=== PATIENT | female | born 1945 | race Caucasian/White ===

== ENCOUNTER 2017-07-16 05:58 | Day surgery (SDC) | payer OTHER ==
[2017-07-16] MEDS ORDERED: LIDOCAINE 2% (SDV) 5 ML INJ (07:50)
[2017-07-16] MEDS ORDERED: PROPOFOL 60 ML (07:50)
== END 2017-07-16 11:30 | disposition home or self-care (01) ==
LOC: GIL 05:58
DX: Z12.11 Encounter for screening for malignant neoplasm of colon (principal); E11.9 Type 2 diabetes mellitus without complications; I10 Essential (primary) hypertension; Z79.84 Long term (current) use of oral hypoglycemic drugs
CPT/HCPCS: 45378

== ENCOUNTER 2017-11-05 23:53 | Inpatient (IN) | payer OTHER ==
[2017-11-06] MEDS: ONDANSETRON 4 MG INJ IV ×4 (01:26→18:22)
[2017-11-06] MEDS: morphine 2 MG INJ IV ×4 (01:27→18:22)
[2017-11-06 02:14] LABS: ADD MAN DIFF? NO
[2017-11-06 02:20] LABS: ABNORMAL IP MESSAGE 1; BASOPHILS % 0.2 % (0.0-2.0); EOSINOPHILS % 0.2 % (0.0-7.0); HEMATOCRIT 35.4 % (37.0-47.0); HEMOGLOBIN 11.7 g/dl (12.0-16.0); LYMPHOCYTES # 0.3 10^3/ul (0.8-2.9); LYMPHOCYTES % 5.1 % (15.0-51.0); MEAN CORPUSCULAR HEMOGLOBIN 31.4 pg (29.0-33.0); MEAN CORPUSCULAR HGB CONC 33.1 g/dl (32.0-37.0); MEAN CORPUSCULAR VOLUME 94.9 fl (82.0-101.0); MONOCYTE # 0.3 10^3/ul (0.3-0.9); MONOCYTES % 5.1 % (0.0-11.0); NEUTROPHIL # 5.8 10^3/ul (1.6-7.5); NEUTROPHILS % 88.9 % (39.0-77.0); PLATELET COUNT 231 10^3/UL (140-415); RED BLOOD COUNT 3.73 10^6/ul (4.20-5.40); RED CELL DISTRIBUTION WIDTH 14.2 % (11.5-14.5)
[2017-11-06 02:20] LABS: WHITE BLOOD COUNT 6.5 10^3/ul (4.8-10.8)
[2017-11-06 02:24] LABS: POSITIVE DIFF @See below
[2017-11-06 02:29] LABS: URINE PH (Dip) POC 6.5 (5.0-8.5)
[2017-11-06 02:29] LABS: URINE BLOOD (Dip) POC Trace-intact (NEGATIVE); URINE GLUCOSE (Dip) POC Negative (NEGATIVE); URINE KETONES (Dip) POC 2+ (NEGATIVE); URINE LEUKOCYTE EST (Dip) POC Negative (NEGATIVE); URINE NITRITE (Dip) POC Negative (NEGATIVE); URINE TOTAL PROTEIN POC Trace (NEGATIVE)
[2017-11-06 02:34] LABS: ALANINE AMINOTRANSFERASE 22 IU/L (13-69); ALBUMIN 4.5 g/dl (3.3-4.9); ALBUMIN/GLOBULIN RATIO 1.36; ALKALINE PHOSPHATASE 55 IU/L (42-121); ANION GAP 12 (8-16); ASPARTATE AMINO TRANSFERASE 27 IU/L (15-46); BILIRUBIN,INDIRECT 0.6 mg/dl (0-1.1); BILIRUBIN,TOTAL 0.6 mg/dl (0.2-1.3); BLOOD UREA NITROGEN 19 mg/dl (7-20); CALCIUM 9.3 mg/dl (8.4-10.2); CARBON DIOXIDE 27 mmol/L (21-31); CHLORIDE 106 mmol/L (97-110); CREATININE 0.67 mg/dl (0.44-1.00); GLUCOSE 134 mg/dl (70-220); LIPASE 58 U/L (23-300); POTASSIUM 4.1 mmol/L (3.5-5.1); SODIUM 141 mmol/L (135-144); TOTAL PROTEIN 7.8 g/dl (6.1-8.1)
[2017-11-06] MEDS ORDERED: NACL 0.9% 3 ML SYG IV ×2 (03:00→12:30)
[2017-11-06] MEDS: SOD CHLORIDE 0.9% 1,000 ML IV ×3 (03:46→23:27)
[2017-11-06] MEDS: PIPER-TAZO 3.375 GM IV (PMX) 100 ML IVPB (03:46)
[2017-11-06] MEDS ORDERED: DIATR MEGLU/DIATRIZOATE SODIUM 120 ML BTL (09:25)
[2017-11-06] MEDS ORDERED: morphine 2 MG INJ IV (12:30)
[2017-11-07 06:09] LABS: ADD MAN DIFF? NO
[2017-11-07 06:20] LABS: BASOPHILS % 0.3 % (0.0-2.0); HEMATOCRIT 31.1 % (37.0-47.0); LYMPHOCYTES # 0.8 10^3/ul (0.8-2.9); LYMPHOCYTES % 19.9 % (15.0-51.0); MEAN CORPUSCULAR HGB CONC 32.2 g/dl (32.0-37.0); MEAN CORPUSCULAR VOLUME 96.3 fl (82.0-101.0); MONOCYTE # 0.3 10^3/ul (0.3-0.9); MONOCYTES % 6.5 % (0.0-11.0); NEUTROPHIL # 2.8 10^3/ul (1.6-7.5); PLATELET COUNT 233 10^3/UL (140-415); RED BLOOD COUNT 3.23 10^6/ul (4.20-5.40); RED CELL DISTRIBUTION WIDTH 14.7 % (11.5-14.5)
[2017-11-07 06:20] LABS: WHITE BLOOD COUNT 3.8 10^3/ul (4.8-10.8)
[2017-11-07 07:37] LABS: ALANINE AMINOTRANSFERASE 19 IU/L (13-69); ALBUMIN 3.4 g/dl (3.3-4.9); ALBUMIN/GLOBULIN RATIO 1.21; ALKALINE PHOSPHATASE 43 IU/L (42-121); ANION GAP 9 (8-16); ASPARTATE AMINO TRANSFERASE 20 IU/L (15-46); BILIRUBIN,INDIRECT 0.6 mg/dl (0-1.1); BILIRUBIN,TOTAL 0.6 mg/dl (0.2-1.3); BLOOD UREA NITROGEN 16 mg/dl (7-20); CALCIUM 7.9 mg/dl (8.4-10.2); CARBON DIOXIDE 24 mmol/L (21-31); CHLORIDE 116 mmol/L (97-110); CHOL/HDL RATIO 2.1 RATIO; CHOLESTEROL 131 mg/dl (100-200); CREATININE 0.53 mg/dl (0.44-1.00); GLUCOSE 89 mg/dl (70-220); HDL CHOLESTEROL 61 mg/dl (33-92); LDL CHOLESTEROL,CALCULATED 56 mg/dl; MAGNESIUM 1.9 mg/dl (1.7-2.5); POTASSIUM 3.5 mmol/L (3.5-5.1); SODIUM 145 mmol/L (135-144); TOTAL PROTEIN 6.2 g/dl (6.1-8.1); TRIGLYCERIDES 70 mg/dl (0-149)
[2017-11-07 07:42] LABS: FREE THYROXINE INDEX (Calc) 1.75 ug/ml (0.65-3.89); T3 UPTAKE 33.1 % (23.5-40.5); T4 (THYROXINE) 5.3 ug/dl (5.5-11.0)
[2017-11-07 07:53] LABS: HEMOGLOBIN A1C 5.5 % (0-5.9)
[2017-11-07] MEDS: SOD CHLORIDE 0.9% 1,000 ML IV (09:16)
[2017-11-07] MEDS: ENOXAPARIN 40 MG/0.4 ML SYG SC (09:18)
[2017-11-07] MEDS: morphine 2 MG INJ IV (11:11)
[2017-11-07] MEDS: ONDANSETRON 4 MG INJ IV (11:11)
[2017-11-07] MEDS: ACETAMINOPHEN 325 MG TAB PO (16:32)
[2017-11-08 06:43] LABS: ANION GAP 8 (8-16); BLOOD UREA NITROGEN 11 mg/dl (7-20); CARBON DIOXIDE 26 mmol/L (21-31); CHLORIDE 110 mmol/L (97-110); CREATININE 0.53 mg/dl (0.44-1.00); GLUCOSE 85 mg/dl (70-220); POTASSIUM 3.2 mmol/L (3.5-5.1); SODIUM 141 mmol/L (135-144)
[2017-11-08] MEDS: ENOXAPARIN 40 MG/0.4 ML SYG SC (09:35)
[2017-11-08] MEDS: NEUTRA-PHOS 250 MG PACKET PO (14:45)
[2017-11-08] MEDS: POTASSIUM CHLORIDE (SR) 20 MEQ TAB PO (18:05)
== END 2017-11-08 19:00 | disposition home or self-care (01) | DRG 390 ==
LOC: E/R 23:53 → PP2 11-06 02:54
DX: K56.51 Intestinal adhesions [bands], with partial obstruction (principal); M81.0 Age-related osteoporosis without current pathological fracture; Z85.41 Personal history of malignant neoplasm of cervix uteri; Z90.710 Acquired absence of both cervix and uterus
CPT/HCPCS: 36415; 74176; 74250; 80048; 80053; 80061; 81003; 83036; 83690; 83735; 84100; 84436; 84479; 85025; 96374; 96375; 99285-25

== ENCOUNTER 2018-01-02 14:49 | Inpatient (IN) | payer OTHER ==
[2018-01-02 15:28] LABS: ADD MAN DIFF? NO
[2018-01-02 15:35] LABS: ABNORMAL IP MESSAGE 1; BASOPHILS % 0.2 % (0.0-2.0); EOSINOPHILS % 0.3 % (0.0-7.0); HEMATOCRIT 35.9 % (37.0-47.0); HEMOGLOBIN 12.1 g/dl (12.0-16.0); LYMPHOCYTES # 0.5 10^3/ul (0.8-2.9); LYMPHOCYTES % 8.5 % (15.0-51.0); MEAN CORPUSCULAR HEMOGLOBIN 31.7 pg (29.0-33.0); MEAN CORPUSCULAR HGB CONC 33.7 g/dl (32.0-37.0); MEAN PLATELET VOLUME 9.8 fl (7.4-10.4); MONOCYTE # 0.2 10^3/ul (0.3-0.9); MONOCYTES % 3.8 % (0.0-11.0); NEUTROPHIL # 5.5 10^3/ul (1.6-7.5); PLATELET COUNT 241 10^3/UL (140-415); RED BLOOD COUNT 3.82 10^6/ul (4.20-5.40); RED CELL DISTRIBUTION WIDTH 14.3 % (11.5-14.5)
[2018-01-02 15:35] LABS: WHITE BLOOD COUNT 6.3 10^3/ul (4.8-10.8)
[2018-01-02 15:37] LABS: POSITIVE DIFF @See below
[2018-01-02] MEDS: SOD CHLORIDE 0.9% 1,000 ML IV (15:44)
[2018-01-02] MEDS: ONDANSETRON 4 MG INJ IV (15:44)
[2018-01-02] MEDS: morphine 4 MG/ML VIAL IV (15:49)
[2018-01-02 15:52] LABS: ALANINE AMINOTRANSFERASE 18 IU/L (13-69); ALBUMIN 4.5 g/dl (3.3-4.9); ALBUMIN/GLOBULIN RATIO 1.21; ALKALINE PHOSPHATASE 59 IU/L (42-121); ANION GAP 14 (8-16); ASPARTATE AMINO TRANSFERASE 27 IU/L (15-46); BILIRUBIN,INDIRECT 0.9 mg/dl (0-1.1); BILIRUBIN,TOTAL 0.9 mg/dl (0.2-1.3); CALCIUM 9.3 mg/dl (8.4-10.2); CARBON DIOXIDE 24 mmol/L (21-31); CHLORIDE 105 mmol/L (97-110); CREATININE 0.59 mg/dl (0.44-1.00); GLUCOSE 123 mg/dl (70-220); LIPASE 327 U/L (23-300); SODIUM 139 mmol/L (135-144); TOTAL PROTEIN 8.2 g/dl (6.1-8.1)
[2018-01-02 15:53] LABS: BLOOD UREA NITROGEN 18 mg/dl (7-20)
[2018-01-02] MEDS ORDERED: LIDOCAINE 2% VISC 15 ML CUP PO (18:00)
[2018-01-02] MEDS ORDERED: ONDANSETRON 4 MG INJ IV ×2 (18:00→18:30)
[2018-01-02] MEDS ORDERED: ACETAMINOPHEN 325 MG TAB PO ×2 (18:00→18:30)
[2018-01-02] MEDS ORDERED: NACL 0.9% 3 ML SYG IV (18:30)
[2018-01-02] MEDS: KETOROLAC 15 MG INJ IV (18:59)
[2018-01-02] MEDS ORDERED: KETOROLAC 30 MG INJ IV (19:00)
[2018-01-02] MEDS ORDERED: morphine 2 MG INJ IV (19:00)
[2018-01-02] MEDS: LIDOCAINE 2% 20 ML UROJET SYRINGE MM (19:08)
[2018-01-02] MEDS: DEXTROSE 5%-0.45% NACL 1,000 ML IV (21:20)
[2018-01-03] MEDS: DEXTROSE 5%-0.45% NACL 1,000 ML IV ×2 (04:12→05:12)
[2018-01-03] MEDS: PANTOPRAZOLE 40 MG INJ IV (05:12)
[2018-01-03 05:31] LABS: ADD MAN DIFF? NO
[2018-01-03 05:36] LABS: BASOPHILS % 0.7 % (0.0-2.0); EOSINOPHILS % 1.3 % (0.0-7.0); HEMATOCRIT 30.4 % (37.0-47.0); LYMPHOCYTES # 0.9 10^3/ul (0.8-2.9); MEAN CORPUSCULAR HEMOGLOBIN 31.3 pg (29.0-33.0); MEAN CORPUSCULAR HGB CONC 32.9 g/dl (32.0-37.0); MEAN CORPUSCULAR VOLUME 95.3 fl (82.0-101.0); MEAN PLATELET VOLUME 10.2 fl (7.4-10.4); MONOCYTE # 0.2 10^3/ul (0.3-0.9); NEUTROPHIL # 1.8 10^3/ul (1.6-7.5); NEUTROPHILS % 60.7 % (39.0-77.0); PLATELET COUNT 214 10^3/UL (140-415); RED BLOOD COUNT 3.19 10^6/ul (4.20-5.40); RED CELL DISTRIBUTION WIDTH 14.4 % (11.5-14.5)
[2018-01-03 06:07] LABS: ANION GAP 7 (8-16); BLOOD UREA NITROGEN 13 mg/dl (7-20); CALCIUM 7.8 mg/dl (8.4-10.2); CARBON DIOXIDE 27 mmol/L (21-31); CHLORIDE 108 mmol/L (97-110); CREATININE 0.55 mg/dl (0.44-1.00); GLUCOSE 109 mg/dl (70-220); MAGNESIUM 2.1 mg/dl (1.7-2.5); PHOSPHORUS 2.5 mg/dl (2.5-4.9); POTASSIUM 3.5 mmol/L (3.5-5.1); SODIUM 138 mmol/L (135-144)
[2018-01-03] MEDS ORDERED: POTASSIUM CHLORIDE 20 MEQ in DEXTROSE 5%-0.45% NACL 1,000 ML IV (11:57)
[2018-01-03] MEDS: D5W-0.45 NACL + KCL 20 MEQ 1,000 ML IV (14:10)
[2018-01-03] MEDS: DIATR MEGLU/DIATRIZOATE SODIUM 120 ML BTL (16:15)
[2018-01-04] MEDS: D5W-0.45 NACL + KCL 20 MEQ 1,000 ML IV ×2 (03:39→13:30)
[2018-01-04 05:06] LABS: ADD MAN DIFF? NO
[2018-01-04 05:15] LABS: BASOPHILS % 0.2 % (0.0-2.0); EOSINOPHILS % 0.9 % (0.0-7.0); HEMATOCRIT 32.2 % (37.0-47.0); HEMOGLOBIN 10.3 g/dl (12.0-16.0); LYMPHOCYTES # 0.7 10^3/ul (0.8-2.9); LYMPHOCYTES % 15.4 % (15.0-51.0); MEAN CORPUSCULAR HEMOGLOBIN 30.9 pg (29.0-33.0); MEAN CORPUSCULAR VOLUME 96.7 fl (82.0-101.0); MEAN PLATELET VOLUME 9.9 fl (7.4-10.4); MONOCYTE # 0.3 10^3/ul (0.3-0.9); MONOCYTES % 6.5 % (0.0-11.0); NEUTROPHIL # 3.3 10^3/ul (1.6-7.5); NEUTROPHILS % 76.8 % (39.0-77.0); PLATELET COUNT 224 10^3/UL (140-415); RED BLOOD COUNT 3.33 10^6/ul (4.20-5.40); RED CELL DISTRIBUTION WIDTH 14.6 % (11.5-14.5)
[2018-01-04 05:15] LABS: WHITE BLOOD COUNT 4.3 10^3/ul (4.8-10.8)
[2018-01-04] MEDS: PANTOPRAZOLE 40 MG INJ IV (05:31)
[2018-01-04 05:43] LABS: ALBUMIN 3.4 g/dl (3.3-4.9); ANION GAP 10 (8-16); BLOOD UREA NITROGEN 10 mg/dl (7-20); CALCIUM 8.2 mg/dl (8.4-10.2); CARBON DIOXIDE 24 mmol/L (21-31); CHLORIDE 114 mmol/L (97-110); CREATININE 0.51 mg/dl (0.44-1.00); GLUCOSE 119 mg/dl (70-220); MAGNESIUM 2.3 mg/dl (1.7-2.5); PHOSPHORUS 2.3 mg/dl (2.5-4.9); POTASSIUM 3.7 mmol/L (3.5-5.1); SODIUM 144 mmol/L (135-144)
[2018-01-05] MEDS: D5W-0.45 NACL + KCL 20 MEQ 1,000 ML IV (04:39)
[2018-01-05] MEDS: PANTOPRAZOLE 40 MG INJ IV (05:33)
[2018-01-05 05:49] LABS: ADD MAN DIFF? NO
[2018-01-05 06:00] LABS: ABNORMAL IP MESSAGE 1; BASOPHILS % 0.3 % (0.0-2.0); HEMATOCRIT 32.6 % (37.0-47.0); HEMOGLOBIN 10.7 g/dl (12.0-16.0); LYMPHOCYTES # 0.5 10^3/ul (0.8-2.9); LYMPHOCYTES % 14.8 % (15.0-51.0); MEAN CORPUSCULAR HEMOGLOBIN 31.4 pg (29.0-33.0); MEAN CORPUSCULAR HGB CONC 32.8 g/dl (32.0-37.0); MEAN CORPUSCULAR VOLUME 95.6 fl (82.0-101.0); MEAN PLATELET VOLUME 9.8 fl (7.4-10.4); MONOCYTE # 0.2 10^3/ul (0.3-0.9); MONOCYTES % 5.5 % (0.0-11.0); NEUTROPHIL # 2.4 10^3/ul (1.6-7.5); NEUTROPHILS % 78.1 % (39.0-77.0); PLATELET COUNT 250 10^3/UL (140-415); RED BLOOD COUNT 3.41 10^6/ul (4.20-5.40); RED CELL DISTRIBUTION WIDTH 14.3 % (11.5-14.5)
[2018-01-05 06:00] LABS: WHITE BLOOD COUNT 3.1 10^3/ul (4.8-10.8)
[2018-01-05 06:17] LABS: POSITIVE DIFF @See below
[2018-01-05 06:22] LABS: ALBUMIN 3.7 g/dl (3.3-4.9); ANION GAP 13 (8-16); BLOOD UREA NITROGEN 4 mg/dl (7-20); CALCIUM 8.6 mg/dl (8.4-10.2); CARBON DIOXIDE 24 mmol/L (21-31); CHLORIDE 106 mmol/L (97-110); CREATININE 0.53 mg/dl (0.44-1.00); GLUCOSE 107 mg/dl (70-220); MAGNESIUM 1.9 mg/dl (1.7-2.5); PHOSPHORUS 1.7 mg/dl (2.5-4.9); POTASSIUM 3.9 mmol/L (3.5-5.1); SODIUM 139 mmol/L (135-144)
[2018-01-05] MEDS: KETOROLAC 15 MG INJ IV (11:52)
[2018-01-05] MEDS: SOD CHLORIDE 0.45% 1,000 ML IV (13:46)
[2018-01-05] MEDS: NEUTRA-PHOS 250 MG PACKET PO (14:59)
== END 2018-01-05 17:15 | disposition home or self-care (01) | DRG 390 ==
LOC: E/R 14:49 → MS1 17:59
DX: K56.51 Intestinal adhesions [bands], with partial obstruction (principal); M81.0 Age-related osteoporosis without current pathological fracture; K42.9 Umbilical hernia without obstruction or gangrene; Z85.42 Personal history of malignant neoplasm of other parts of uterus; Z85.43 Personal history of malignant neoplasm of ovary; Z92.3 Personal history of irradiation; Z90.710 Acquired absence of both cervix and uterus
CPT/HCPCS: 36415; 71045; 74176; 74250; 80048; 80053; 80069; 83690; 83735; 84100; 85025; 93005; 96374; 96375; 99285-25

== ENCOUNTER 2018-06-17 02:15 | Inpatient (IN) | payer OTHER ==
[2018-06-17 03:28] LABS: ADD MAN DIFF? NO
[2018-06-17] MEDS: ONDANSETRON 4 MG INJ IV (03:30)
[2018-06-17] MEDS: morphine 2 MG INJ IV (03:31)
[2018-06-17 03:45] LABS: ALANINE AMINOTRANSFERASE 13 IU/L (13-69); ALBUMIN 4.3 g/dl (3.3-4.9); ALBUMIN/GLOBULIN RATIO 1.16; ALKALINE PHOSPHATASE 56 IU/L (42-121); ANION GAP 10 (5-13); ASPARTATE AMINO TRANSFERASE 30 IU/L (15-46); BILIRUBIN,INDIRECT 0.6 mg/dl (0-1.1); BILIRUBIN,TOTAL 0.6 mg/dl (0.2-1.3); BLOOD UREA NITROGEN 20 mg/dl (7-20); CALCIUM 9.5 mg/dl (8.4-10.2); CARBON DIOXIDE 27 mmol/L (21-31); CHLORIDE 100 mmol/L (97-110); CREATININE 0.51 mg/dl (0.44-1.00); Estimated GFR > 60 mL/min (>60); GLUCOSE 115 mg/dl (70-220); LIPASE 129 U/L (23-300); POTASSIUM 4.2 mmol/L (3.5-5.1); SODIUM 137 mmol/L (135-144)
[2018-06-17 03:51] LABS: WHITE BLOOD COUNT 4.7 10^3/ul (4.8-10.8)
[2018-06-17 03:51] LABS: BASOPHILS % 0.4 % (0.0-2.0); EOSINOPHILS % 0.6 % (0.0-7.0); HEMATOCRIT 33.6 % (37.0-47.0); HEMOGLOBIN 11.2 g/dl (12.0-16.0); LYMPHOCYTES # 0.7 10^3/ul (0.8-2.9); LYMPHOCYTES % 14.2 % (15.0-51.0); MEAN CORPUSCULAR HEMOGLOBIN 31.2 pg (29.0-33.0); MEAN CORPUSCULAR HGB CONC 33.3 g/dl (32.0-37.0); MEAN CORPUSCULAR VOLUME 93.6 fl (82.0-101.0); MONOCYTE # 0.3 10^3/ul (0.3-0.9); MONOCYTES % 5.7 % (0.0-11.0); NEUTROPHIL # 3.7 10^3/ul (1.6-7.5); NEUTROPHILS % 78.9 % (39.0-77.0); PLATELET COUNT 268 10^3/UL (140-415); RED BLOOD COUNT 3.59 10^6/ul (4.20-5.40); RED CELL DISTRIBUTION WIDTH 14.4 % (11.5-14.5)
[2018-06-17 03:57] LABS: URINE BLOOD (Dip) POC Trace-lysed (NEGATIVE); URINE GLUCOSE (Dip) POC Negative (NEGATIVE); URINE KETONES (Dip) POC 3+ (NEGATIVE); URINE LEUKOCYTE EST (Dip) POC Negative (NEGATIVE); URINE NITRITE (Dip) POC Negative (NEGATIVE); URINE TOTAL PROTEIN POC Negative (NEGATIVE)
[2018-06-17] MEDS: PIPER-TAZO 3.375 GM IV (PMX) 100 ML IVPB (04:16)
[2018-06-17] MEDS: DEXTROSE 5%-0.45% NACL 1,000 ML IV ×2 (05:17→14:58)
[2018-06-17] MEDS ORDERED: NACL 0.9% 3 ML SYG IV (05:30)
[2018-06-17] MEDS: ENOXAPARIN 30 MG/0.3 ML SYG SC (09:16)
[2018-06-17] MEDS: HYDROmorphONE 0.5 MG/0.5 ML SYG IV (18:59)
[2018-06-18] MEDS: DEXTROSE 5%-0.45% NACL 1,000 ML IV ×2 (02:51→13:43)
[2018-06-18] MEDS: HYDROmorphONE 0.5 MG/0.5 ML SYG IV ×2 (02:55→12:15)
[2018-06-18] MEDS: IOHEXOL 14.3 MG(I)/ML (ADULT) BTL PO ×2 (03:42→10:29)
[2018-06-18 06:12] LABS: ADD MAN DIFF? NO
[2018-06-18 06:14] LABS: BASOPHILS % 0.3 % (0.0-2.0); EOSINOPHILS % 1.1 % (0.0-7.0); HEMATOCRIT 30.6 % (37.0-47.0); HEMOGLOBIN 10.1 g/dl (12.0-16.0); LYMPHOCYTES # 0.8 10^3/ul (0.8-2.9); LYMPHOCYTES % 20.1 % (15.0-51.0); MEAN CORPUSCULAR VOLUME 93.9 fl (82.0-101.0); MEAN PLATELET VOLUME 9.9 fl (7.4-10.4); MONOCYTE # 0.3 10^3/ul (0.3-0.9); MONOCYTES % 8.7 % (0.0-11.0); NEUTROPHIL # 2.6 10^3/ul (1.6-7.5); NEUTROPHILS % 69.5 % (39.0-77.0); PLATELET COUNT 234 10^3/UL (140-415); RED BLOOD COUNT 3.26 10^6/ul (4.20-5.40); RED CELL DISTRIBUTION WIDTH 14.2 % (11.5-14.5)
[2018-06-18 06:14] LABS: WHITE BLOOD COUNT 3.8 10^3/ul (4.8-10.8)
[2018-06-18 06:38] LABS: HEMOGLOBIN A1C 5.5 % (0-5.9)
[2018-06-18 07:16] LABS: ALANINE AMINOTRANSFERASE 14 IU/L (13-69); ALBUMIN 3.5 g/dl (3.3-4.9); ALBUMIN/GLOBULIN RATIO 1.12; ALKALINE PHOSPHATASE 46 IU/L (42-121); ANION GAP 5 (5-13); ASPARTATE AMINO TRANSFERASE 21 IU/L (15-46); BILIRUBIN,INDIRECT 0.6 mg/dl (0-1.1); BILIRUBIN,TOTAL 0.6 mg/dl (0.2-1.3); BLOOD UREA NITROGEN 9 mg/dl (7-20); CALCIUM 8.7 mg/dl (8.4-10.2); CARBON DIOXIDE 27 mmol/L (21-31); CHLORIDE 103 mmol/L (97-110); CREATININE 0.56 mg/dl (0.44-1.00); Estimated GFR > 60 mL/min (>60); GLUCOSE 119 mg/dl (70-220); POTASSIUM 3.5 mmol/L (3.5-5.1); SODIUM 135 mmol/L (135-144); TOTAL PROTEIN 6.6 g/dl (6.1-8.1)
[2018-06-18] MEDS: ENOXAPARIN 30 MG/0.3 ML SYG SC (08:41)
[2018-06-18] MEDS: ONDANSETRON 4 MG INJ IV ×2 (12:09→21:44)
[2018-06-19] MEDS: DEXTROSE 5%-0.45% NACL 1,000 ML IV ×3 (00:15→17:09)
[2018-06-19 06:19] LABS: ADD MAN DIFF? NO
[2018-06-19 06:41] LABS: BASOPHILS % 0.3 % (0.0-2.0); EOSINOPHILS % 1.1 % (0.0-7.0); HEMATOCRIT 30.7 % (37.0-47.0); LYMPHOCYTES # 0.8 10^3/ul (0.8-2.9); MEAN CORPUSCULAR HEMOGLOBIN 30.9 pg (29.0-33.0); MEAN CORPUSCULAR HGB CONC 32.6 g/dl (32.0-37.0); MEAN CORPUSCULAR VOLUME 94.8 fl (82.0-101.0); MEAN PLATELET VOLUME 9.7 fl (7.4-10.4); MONOCYTE # 0.3 10^3/ul (0.3-0.9); MONOCYTES % 8.5 % (0.0-11.0); NEUTROPHIL # 2.4 10^3/ul (1.6-7.5); NEUTROPHILS % 67.8 % (39.0-77.0); PLATELET COUNT 234 10^3/UL (140-415); RED BLOOD COUNT 3.24 10^6/ul (4.20-5.40)
[2018-06-19 06:41] LABS: WHITE BLOOD COUNT 3.5 10^3/ul (4.8-10.8)
[2018-06-19 06:52] LABS: ANION GAP 7 (5-13); BLOOD UREA NITROGEN 5 mg/dl (7-20); CALCIUM 8.8 mg/dl (8.4-10.2); CARBON DIOXIDE 25 mmol/L (21-31); CHLORIDE 108 mmol/L (97-110); Estimated GFR > 60 mL/min (>60); GLUCOSE 112 mg/dl (70-220); MAGNESIUM 1.9 mg/dl (1.7-2.5); POTASSIUM 3.4 mmol/L (3.5-5.1); SODIUM 140 mmol/L (135-144)
[2018-06-19] MEDS: POTASSIUM CHLORIDE 100 ML IVPB (13:17)
[2018-06-19] MEDS: HYDROmorphONE 0.5 MG/0.5 ML SYG IV (20:26)
[2018-06-20] MEDS: DEXTROSE 5%-0.45% NACL 1,000 ML IV ×2 (02:13→12:59)
[2018-06-20 05:33] LABS: ADD MAN DIFF? NO
[2018-06-20 05:36] LABS: BASOPHILS % 0.4 % (0.0-2.0); EOSINOPHILS # 0.1 10^3/ul (0.0-0.5); EOSINOPHILS % 1.5 % (0.0-7.0); HEMOGLOBIN 9.8 g/dl (12.0-16.0); LYMPHOCYTES # 0.8 10^3/ul (0.8-2.9); LYMPHOCYTES % 17.1 % (15.0-51.0); MEAN CORPUSCULAR HEMOGLOBIN 31.4 pg (29.0-33.0); MEAN CORPUSCULAR HGB CONC 33.8 g/dl (32.0-37.0); MEAN CORPUSCULAR VOLUME 92.9 fl (82.0-101.0); MEAN PLATELET VOLUME 9.2 fl (7.4-10.4); MONOCYTE # 0.4 10^3/ul (0.3-0.9); MONOCYTES % 9.3 % (0.0-11.0); NEUTROPHIL # 3.4 10^3/ul (1.6-7.5); NEUTROPHILS % 71.3 % (39.0-77.0); PLATELET COUNT 240 10^3/UL (140-415); RED BLOOD COUNT 3.12 10^6/ul (4.20-5.40); RED CELL DISTRIBUTION WIDTH 14.3 % (11.5-14.5)
[2018-06-20 05:36] LABS: WHITE BLOOD COUNT 4.7 10^3/ul (4.8-10.8)
[2018-06-20 06:05] LABS: ANION GAP 5 (5-13); BLOOD UREA NITROGEN 8 mg/dl (7-20); CALCIUM 8.6 mg/dl (8.4-10.2); CARBON DIOXIDE 27 mmol/L (21-31); CHLORIDE 103 mmol/L (97-110); CREATININE 0.51 mg/dl (0.44-1.00); Estimated GFR > 60 mL/min (>60); GLUCOSE 117 mg/dl (70-220); POTASSIUM 3.7 mmol/L (3.5-5.1); SODIUM 135 mmol/L (135-144)
[2018-06-20] MEDS: IBUPROFEN 400 MG TAB PO ×3 (11:30→18:08)
[2018-06-21] MEDS: IBUPROFEN 400 MG TAB PO ×5 (00:38→23:49)
[2018-06-21] MEDS: DEXTROSE 5%-0.45% NACL 1,000 ML IV ×4 (00:40→23:01)
[2018-06-21 05:38] LABS: ADD MAN DIFF? NO
[2018-06-21 05:48] LABS: WHITE BLOOD COUNT 4.3 10^3/ul (4.8-10.8)
[2018-06-21 05:48] LABS: BASOPHILS % 0.2 % (0.0-2.0); EOSINOPHILS # 0.1 10^3/ul (0.0-0.5); EOSINOPHILS % 2.3 % (0.0-7.0); HEMATOCRIT 28.3 % (37.0-47.0); HEMOGLOBIN 9.3 g/dl (12.0-16.0); LYMPHOCYTES # 0.8 10^3/ul (0.8-2.9); LYMPHOCYTES % 17.3 % (15.0-51.0); MEAN CORPUSCULAR HEMOGLOBIN 30.8 pg (29.0-33.0); MEAN CORPUSCULAR HGB CONC 32.9 g/dl (32.0-37.0); MEAN CORPUSCULAR VOLUME 93.7 fl (82.0-101.0); MEAN PLATELET VOLUME 9.7 fl (7.4-10.4); MONOCYTE # 0.4 10^3/ul (0.3-0.9); MONOCYTES % 9.4 % (0.0-11.0); NEUTROPHIL # 3.1 10^3/ul (1.6-7.5); NEUTROPHILS % 70.6 % (39.0-77.0); PLATELET COUNT 247 10^3/UL (140-415); RED BLOOD COUNT 3.02 10^6/ul (4.20-5.40); RED CELL DISTRIBUTION WIDTH 14.2 % (11.5-14.5)
[2018-06-21 06:15] LABS: ANION GAP 7 (5-13); BLOOD UREA NITROGEN 6 mg/dl (7-20); CALCIUM 8.7 mg/dl (8.4-10.2); CARBON DIOXIDE 28 mmol/L (21-31); CHLORIDE 104 mmol/L (97-110); CREATININE 0.53 mg/dl (0.44-1.00); Estimated GFR > 60 mL/min (>60); GLUCOSE 112 mg/dl (70-220); POTASSIUM 3.5 mmol/L (3.5-5.1); SODIUM 139 mmol/L (135-144)
[2018-06-21 11:04] LABS: URIC ACID 3.2 mg/dl (3.1-7.9)
[2018-06-21] MEDS: POLYETHYLENE GLYCOL 17 GM PACKET GTB (20:48)
[2018-06-22] MEDS: IBUPROFEN 400 MG TAB PO ×2 (05:37→11:19)
[2018-06-22 06:14] LABS: ADD MAN DIFF? NO
[2018-06-22 06:19] LABS: WHITE BLOOD COUNT 3.3 10^3/ul (4.8-10.8)
[2018-06-22 06:19] LABS: BASOPHILS % 0.3 % (0.0-2.0); EOSINOPHILS # 0.1 10^3/ul (0.0-0.5); HEMATOCRIT 29.3 % (37.0-47.0); HEMOGLOBIN 9.4 g/dl (12.0-16.0); LYMPHOCYTES # 0.8 10^3/ul (0.8-2.9); LYMPHOCYTES % 23.4 % (15.0-51.0); MEAN CORPUSCULAR HEMOGLOBIN 30.2 pg (29.0-33.0); MEAN CORPUSCULAR HGB CONC 32.1 g/dl (32.0-37.0); MEAN CORPUSCULAR VOLUME 94.2 fl (82.0-101.0); MEAN PLATELET VOLUME 9.9 fl (7.4-10.4); MONOCYTE # 0.2 10^3/ul (0.3-0.9); MONOCYTES % 6.1 % (0.0-11.0); NEUTROPHIL # 2.2 10^3/ul (1.6-7.5); NEUTROPHILS % 66.9 % (39.0-77.0); PLATELET COUNT 262 10^3/UL (140-415); RED BLOOD COUNT 3.11 10^6/ul (4.20-5.40); RED CELL DISTRIBUTION WIDTH 14.2 % (11.5-14.5)
[2018-06-22 06:50] LABS: ANION GAP 9 (5-13); BLOOD UREA NITROGEN 11 mg/dl (7-20); CARBON DIOXIDE 26 mmol/L (21-31); CHLORIDE 106 mmol/L (97-110); CREATININE 0.56 mg/dl (0.44-1.00); Estimated GFR > 60 mL/min (>60); GLUCOSE 93 mg/dl (70-220); SODIUM 141 mmol/L (135-144)
[2018-06-22] MEDS: POLYETHYLENE GLYCOL 17 GM PACKET GTB (08:35)
[2018-06-22] MEDS: DEXTROSE 5%-0.45% NACL 1,000 ML IV (15:09)
== END 2018-06-22 17:46 | disposition home or self-care (01) | DRG 390 ==
LOC: E/R 02:15 → PP2 04:27
DX: K56.600 Partial intestinal obstruction, unspecified as to cause (principal); M72.2 Plantar fascial fibromatosis; M76.71 Peroneal tendinitis, right leg; M65.871 Other synovitis and tenosynovitis, right ankle and foot; M76.821 Posterior tibial tendinitis, right leg; D64.89 Other specified anemias; M81.0 Age-related osteoporosis without current pathological fracture; Z92.21 Personal history of antineoplastic chemotherapy; Z92.3 Personal history of irradiation; Z90.710 Acquired absence of both cervix and uterus; Z85.41 Personal history of malignant neoplasm of cervix uteri
CPT/HCPCS: 36415; 71045; 73610-RT; 73630; 73718; 73721; 74019; 74176; 80048; 80053; 81003; 83036; 83690; 83735; 84560; 85025; 93970; 96374; 96375; 97161; 99285-25

== ENCOUNTER 2018-09-23 04:15 | Inpatient (IN) | payer OTHER ==
[2018-09-23 05:43] LABS: ADD MAN DIFF? NO
[2018-09-23] MEDS: morphine 4 MG/ML VIAL IV (05:53)
[2018-09-23] MEDS: ONDANSETRON 4 MG INJ IV ×2 (05:53→08:00)
[2018-09-23] MEDS: SOD CHLORIDE 0.9% 1,000 ML IV ×2 (05:53→15:00)
[2018-09-23 06:04] LABS: WHITE BLOOD COUNT 5.9 10^3/ul (4.8-10.8)
[2018-09-23 06:04] LABS: BASOPHILS % 0.3 % (0.0-2.0); EOSINOPHILS % 0.5 % (0.0-7.0); HEMATOCRIT 35.1 % (37.0-47.0); HEMOGLOBIN 11.5 g/dl (12.0-16.0); LYMPHOCYTES # 0.7 10^3/ul (0.8-2.9); MEAN CORPUSCULAR HEMOGLOBIN 30.3 pg (29.0-33.0); MEAN CORPUSCULAR HGB CONC 32.8 g/dl (32.0-37.0); MEAN CORPUSCULAR VOLUME 92.4 fl (82.0-101.0); MEAN PLATELET VOLUME 9.9 fl (7.4-10.4); MONOCYTE # 0.3 10^3/ul (0.3-0.9); MONOCYTES % 5.7 % (0.0-11.0); NEUTROPHIL # 4.9 10^3/ul (1.6-7.5); NEUTROPHILS % 82.2 % (39.0-77.0); PLATELET COUNT 277 10^3/UL (140-415); RED CELL DISTRIBUTION WIDTH 14.6 % (11.5-14.5)
[2018-09-23 06:29] LABS: ALANINE AMINOTRANSFERASE 17 IU/L (13-69); ALBUMIN 4.4 g/dl (3.3-4.9); ALBUMIN/GLOBULIN RATIO 1.22; ALKALINE PHOSPHATASE 60 IU/L (42-121); ANION GAP 9 (5-13); ASPARTATE AMINO TRANSFERASE 25 IU/L (15-46); BILIRUBIN,INDIRECT 0.8 mg/dl (0-1.1); BILIRUBIN,TOTAL 0.8 mg/dl (0.2-1.3); BLOOD UREA NITROGEN 23 mg/dl (7-20); CALCIUM 9.5 mg/dl (8.4-10.2); CARBON DIOXIDE 28 mmol/L (21-31); CHLORIDE 102 mmol/L (97-110); CREATININE 0.67 mg/dl (0.44-1.00); Estimated GFR > 60 mL/min (>60); GLUCOSE 132 mg/dl (70-220); LIPASE 59 U/L (23-300); POTASSIUM 4.2 mmol/L (3.5-5.1); SODIUM 139 mmol/L (135-144)
[2018-09-23] MEDS: IOHEXOL 300MG/ML 150 ML BTL (06:48)
[2018-09-23] MEDS: SOD CHLORIDE 0.9% 100 ML (06:49)
[2018-09-23 07:58] LABS: ADD UMIC NO; UR ASCORBIC ACID NEGATIVE (NEGATIVE); UR BILIRUBIN (Dip) NEGATIVE (NEGATIVE); UR BLOOD (Dip) NEGATIVE (NEGATIVE); UR CLARITY CLEAR (CLEAR); UR COLOR STRAW (YELLOW); UR GLUCOSE (Dip) NEGATIVE (NEGATIVE); UR KETONES (Dip) TRACE mg/dL (NEGATIVE); UR LEUKOCYTE ESTERASE (Dip) NEGATIVE Leu/ul (NEGATIVE); UR NITRITE (Dip) NEGATIVE (NEGATIVE); UR SPECIFIC GRAVITY (Dip) 1.029 (1.003-1.030); UR TOTAL PROTEIN (Dip) NEGATIVE (NEGATIVE); UR UROBILINOGEN (Dip) NEGATIVE (NEGATIVE)
[2018-09-23] MEDS: HYDROmorphONE 1 MG/ML SYG IV (08:01)
[2018-09-23] MEDS ORDERED: ACETAMINOPHEN 325 MG TAB PO (14:30)
[2018-09-23] MEDS ORDERED: NACL 0.9% 3 ML SYG IV (14:30)
[2018-09-23] MEDS ORDERED: ONDANSETRON 4 MG INJ IV (14:30)
[2018-09-23] MEDS ORDERED: morphine 2 MG INJ IV (14:30)
[2018-09-24] MEDS: SOD CHLORIDE 0.9% 1,000 ML IV ×3 (04:50→22:50)
[2018-09-24 05:37] LABS: ADD MAN DIFF? NO
[2018-09-24 05:41] LABS: WHITE BLOOD COUNT 4.3 10^3/ul (4.8-10.8)
[2018-09-24 05:41] LABS: BASOPHILS % 0.5 % (0.0-2.0); EOSINOPHILS # 0.1 10^3/ul (0.0-0.5); EOSINOPHILS % 1.2 % (0.0-7.0); HEMOGLOBIN 10.3 g/dl (12.0-16.0); LYMPHOCYTES # 0.8 10^3/ul (0.8-2.9); LYMPHOCYTES % 19.6 % (15.0-51.0); MEAN CORPUSCULAR HEMOGLOBIN 30.6 pg (29.0-33.0); MEAN CORPUSCULAR HGB CONC 32.2 g/dl (32.0-37.0); MONOCYTE # 0.3 10^3/ul (0.3-0.9); MONOCYTES % 6.8 % (0.0-11.0); NEUTROPHIL # 3.1 10^3/ul (1.6-7.5); NEUTROPHILS % 71.4 % (39.0-77.0); PLATELET COUNT 248 10^3/UL (140-415); RED BLOOD COUNT 3.37 10^6/ul (4.20-5.40); RED CELL DISTRIBUTION WIDTH 14.9 % (11.5-14.5)
[2018-09-24 06:28] LABS: ANION GAP 5 (5-13); BLOOD UREA NITROGEN 14 mg/dl (7-20); CALCIUM 8.2 mg/dl (8.4-10.2); CARBON DIOXIDE 27 mmol/L (21-31); CHLORIDE 107 mmol/L (97-110); CREATININE 0.59 mg/dl (0.44-1.00); Estimated GFR > 60 mL/min (>60); GLUCOSE 89 mg/dl (70-220); POTASSIUM 3.9 mmol/L (3.5-5.1); SODIUM 139 mmol/L (135-144)
[2018-09-24 07:03] LABS: HEMOGLOBIN A1C 5.6 % (0-5.9)
[2018-09-24] MEDS ORDERED: IOHEXOL 300MG/ML 150 ML BTL (09:56)
== END 2018-09-25 14:00 | disposition home or self-care (01) | DRG 390 ==
LOC: E/R 04:15 → 2NE 08:17
DX: K56.609 Unspecified intestinal obstruction, unspecified as to partial versus complete obstruction (principal); K57.90 Diverticulosis of intestine, part unspecified, without perforation or abscess without bleeding; K80.20 Calculus of gallbladder without cholecystitis without obstruction; I70.90 Unspecified atherosclerosis; D64.9 Anemia, unspecified; M81.0 Age-related osteoporosis without current pathological fracture
CPT/HCPCS: 36415; 74018; 74019; 74177; 74250; 80048; 80053; 81003; 83036; 83690; 83735; 85025; 87045; 87086; 87177; 96361; 96374; 96375; 96376; 99285-25

== ENCOUNTER 2018-11-24 21:24 | Inpatient (IN) | payer OTHER ==
[2018-11-24 23:19] LABS: ADD MAN DIFF? NO
[2018-11-24] MEDS: ONDANSETRON 4 MG INJ IV (23:21)
[2018-11-24 23:23] LABS: BASOPHILS % 0.2 % (0.0-2.0); EOSINOPHILS % 0.2 % (0.0-7.0); HEMATOCRIT 34.7 % (37.0-47.0); HEMOGLOBIN 11.6 g/dl (12.0-16.0); LYMPHOCYTES # 0.9 10^3/ul (0.8-2.9); LYMPHOCYTES % 14.6 % (15.0-51.0); MEAN CORPUSCULAR HEMOGLOBIN 30.9 pg (29.0-33.0); MEAN CORPUSCULAR HGB CONC 33.4 g/dl (32.0-37.0); MEAN CORPUSCULAR VOLUME 92.3 fl (82.0-101.0); MEAN PLATELET VOLUME 9.9 fl (7.4-10.4); MONOCYTE # 0.3 10^3/ul (0.3-0.9); MONOCYTES % 5.4 % (0.0-11.0); NEUTROPHIL # 4.7 10^3/ul (1.6-7.5); NEUTROPHILS % 79.4 % (39.0-77.0); PLATELET COUNT 260 10^3/UL (140-415); RED BLOOD COUNT 3.76 10^6/ul (4.20-5.40); RED CELL DISTRIBUTION WIDTH 14.4 % (11.5-14.5)
[2018-11-24 23:25] LABS: ADD UMIC NO; UR ASCORBIC ACID 20 mg/dL (NEGATIVE); UR BILIRUBIN (Dip) NEGATIVE (NEGATIVE); UR BLOOD (Dip) NEGATIVE (NEGATIVE); UR CLARITY CLEAR (CLEAR); UR COLOR YELLOW (YELLOW); UR GLUCOSE (Dip) NEGATIVE (NEGATIVE); UR KETONES (Dip) 1+ mg/dL (NEGATIVE); UR LEUKOCYTE ESTERASE (Dip) NEGATIVE Leu/ul (NEGATIVE); UR NITRITE (Dip) NEGATIVE (NEGATIVE); UR SPECIFIC GRAVITY (Dip) 1.011 (1.003-1.030); UR TOTAL PROTEIN (Dip) NEGATIVE (NEGATIVE); UR UROBILINOGEN (Dip) NEGATIVE (NEGATIVE)
[2018-11-24 23:48] LABS: ALANINE AMINOTRANSFERASE 24 IU/L (13-69); ALBUMIN 4.7 g/dl (3.3-4.9); ALBUMIN/GLOBULIN RATIO 1.38; ALKALINE PHOSPHATASE 66 IU/L (42-121); ANION GAP 10 (5-13); ASPARTATE AMINO TRANSFERASE 28 IU/L (15-46); BILIRUBIN,INDIRECT 1.1 mg/dl (0-1.1); BILIRUBIN,TOTAL 1.1 mg/dl (0.2-1.3); BLOOD UREA NITROGEN 12 mg/dl (7-20); CALCIUM 9.9 mg/dl (8.4-10.2); CARBON DIOXIDE 28 mmol/L (21-31); CHLORIDE 96 mmol/L (97-110); GLUCOSE 121 mg/dl (70-220); LIPASE 66 U/L (23-300); SODIUM 134 mmol/L (135-144); TOTAL PROTEIN 8.1 g/dl (6.1-8.1)
[2018-11-25] MEDS: morphine 4 MG/ML VIAL IV ×3 (00:02→13:56)
[2018-11-25] MEDS ORDERED: ONDANSETRON 4 MG INJ IV ×2 (03:00→07:00)
[2018-11-25] MEDS ORDERED: ACETAMINOPHEN 325 MG TAB PO (03:00)
[2018-11-25] MEDS: ONDANSETRON 4 MG INJ IV (03:47)
[2018-11-25] MEDS: LIDOCAINE 2% VISC 15 ML CUP PO (03:51)
[2018-11-25] MEDS: DEXTROSE 5%-0.45% NACL 1,000 ML IV ×2 (05:31→18:07)
[2018-11-25] MEDS ORDERED: NACL 0.9% 3 ML SYG IV (07:00)
[2018-11-25] MEDS ORDERED: ALBUTEROL/IPRATROPIUM (NEB) 3 ML AMP HHN (07:00)
[2018-11-25 07:44] LABS: ADD MAN DIFF? NO
[2018-11-25 07:50] LABS: WHITE BLOOD COUNT 2.5 10^3/ul (4.8-10.8)
[2018-11-25 07:50] LABS: BASOPHILS % 0.4 % (0.0-2.0); EOSINOPHILS % 0.8 % (0.0-7.0); HEMATOCRIT 35.2 % (37.0-47.0); HEMOGLOBIN 11.2 g/dl (12.0-16.0); LYMPHOCYTES # 0.8 10^3/ul (0.8-2.9); LYMPHOCYTES % 31.3 % (15.0-51.0); MEAN CORPUSCULAR HEMOGLOBIN 30.6 pg (29.0-33.0); MEAN CORPUSCULAR HGB CONC 31.8 g/dl (32.0-37.0); MEAN CORPUSCULAR VOLUME 96.2 fl (82.0-101.0); MEAN PLATELET VOLUME 12.6 fl (7.4-10.4); MONOCYTE # 0.3 10^3/ul (0.3-0.9); MONOCYTES % 13.3 % (0.0-11.0); NEUTROPHIL # 1.4 10^3/ul (1.6-7.5); NEUTROPHILS % 54.2 % (39.0-77.0); PLATELET COUNT 132 10^3/UL (140-415); RED BLOOD COUNT 3.66 10^6/ul (4.20-5.40); RED CELL DISTRIBUTION WIDTH 14.5 % (11.5-14.5)
[2018-11-25 08:11] LABS: ANION GAP 10 (5-13); BLOOD UREA NITROGEN 11 mg/dl (7-20); CALCIUM 9.2 mg/dl (8.4-10.2); CARBON DIOXIDE 27 mmol/L (21-31); CHLORIDE 101 mmol/L (97-110); CREATININE 0.55 mg/dl (0.44-1.00); GLUCOSE 122 mg/dl (70-220); MAGNESIUM 1.9 mg/dl (1.7-2.5); PHOSPHORUS 4.4 mg/dl (2.5-4.9); POTASSIUM 4.5 mmol/L (3.5-5.1); SODIUM 138 mmol/L (135-144)
[2018-11-25] MEDS ORDERED: IOHEXOL 300MG/ML 150 ML BTL ×5 (10:43→13:55)
[2018-11-26] MEDS: DEXTROSE 5%-0.45% NACL 1,000 ML IV ×3 (02:38→22:53)
[2018-11-26 06:28] LABS: ADD MAN DIFF? NO; BASOPHILS % 0.4 % (0.0-2.0); EOSINOPHILS % 1.5 % (0.0-7.0); HEMATOCRIT 33.3 % (37.0-47.0); HEMOGLOBIN 10.8 g/dl (12.0-16.0); LYMPHOCYTES # 0.7 10^3/ul (0.8-2.9); LYMPHOCYTES % 27.7 % (15.0-51.0); MEAN CORPUSCULAR HEMOGLOBIN 30.8 pg (29.0-33.0); MEAN CORPUSCULAR HGB CONC 32.4 g/dl (32.0-37.0); MEAN CORPUSCULAR VOLUME 94.9 fl (82.0-101.0); MEAN PLATELET VOLUME 9.7 fl (7.4-10.4); MONOCYTE # 0.2 10^3/ul (0.3-0.9); MONOCYTES % 6.4 % (0.0-11.0); NEUTROPHIL # 1.7 10^3/ul (1.6-7.5); PLATELET COUNT 251 10^3/UL (140-415); RED BLOOD COUNT 3.51 10^6/ul (4.20-5.40); RED CELL DISTRIBUTION WIDTH 14.5 % (11.5-14.5)
[2018-11-26 06:28] LABS: WHITE BLOOD COUNT 2.6 10^3/ul (4.8-10.8)
[2018-11-26 06:39] LABS: ALANINE AMINOTRANSFERASE 16 IU/L (13-69); ALBUMIN 3.8 g/dl (3.3-4.9); ALBUMIN/GLOBULIN RATIO 1.26; ALKALINE PHOSPHATASE 49 IU/L (42-121); ANION GAP 6 (5-13); ASPARTATE AMINO TRANSFERASE 22 IU/L (15-46); BILIRUBIN,INDIRECT 1.3 mg/dl (0-1.1); BILIRUBIN,TOTAL 1.3 mg/dl (0.2-1.3); BLOOD UREA NITROGEN 12 mg/dl (7-20); CALCIUM 8.6 mg/dl (8.4-10.2); CARBON DIOXIDE 30 mmol/L (21-31); CHLORIDE 102 mmol/L (97-110); CREATININE 0.69 mg/dl (0.44-1.00); GLUCOSE 120 mg/dl (70-220); MAGNESIUM 1.9 mg/dl (1.7-2.5); PHOSPHORUS 3.2 mg/dl (2.5-4.9); SODIUM 138 mmol/L (135-144); TOTAL PROTEIN 6.8 g/dl (6.1-8.1)
[2018-11-26] MEDS: ENOXAPARIN 40 MG/0.4 ML SYG SC (08:53)
[2018-11-27] MEDS: ENOXAPARIN 40 MG/0.4 ML SYG SC (08:42)
[2018-11-27] MEDS ORDERED: ACETAMINOPHEN 325 MG TAB PO (11:00)
== END 2018-11-27 17:39 | disposition home or self-care (01) | DRG 389 ==
LOC: E/R 21:24 → PP2 11-25 02:55
DX: K56.600 Partial intestinal obstruction, unspecified as to cause (principal); E87.1 Hypo-osmolality and hyponatremia; D69.6 Thrombocytopenia, unspecified; D63.8 Anemia in other chronic diseases classified elsewhere; E86.0 Dehydration; R11.2 Nausea with vomiting, unspecified; K57.30 Diverticulosis of large intestine without perforation or abscess without bleeding; K43.9 Ventral hernia without obstruction or gangrene; Z90.710 Acquired absence of both cervix and uterus; Z85.41 Personal history of malignant neoplasm of cervix uteri
CPT/HCPCS: 36415; 71045; 74018; 74176; 74250; 80048; 80053; 81003; 83690; 83735; 84100; 85025; 96374; 96375; 99285-25